=== PATIENT | male | born 1950 | race Caucasian/White ===

== ENCOUNTER 2023-08-17 11:56 | Observation (INO) ==
[2023-08-17] MEDS ORDERED: ceFAZolin 1 GM in Dextrose 1 GM/50 ML BAG ONE (13:42)
[2023-08-17 14:19] LABS: ABS Eosinophils 0.1 10^3/uL (0.0-0.5); ABS Lymphocytes 2.1 10^3/uL (1.0-4.8); ABS Monocytes 0.8 10^3/uL (0.0-1.1); ABS Neutrophils 6.1 10^3/uL (1.5-7.6); Hematocrit 41.7 % (38-53); Hemoglobin 14.7 g/dL (13.2-16.3); Lymphocyte % 23.2 %; Mean Corpuscular Hemoglobin 34.3 pg (27-33); Mean Corpuscular Hgb Conc 35.2 g/dL (31-36); Mean Corpuscular Volume 97.5 fL (80-97); Mean Platelet Volume 9.1 fL (7.5-11.2); Platelet Count 233 10^3/uL (150-450); Red Blood Count 4.28 10^6/uL (4.06-5.63); Red Cell Distribution Width 13.1 % (12-17); White Blood Count 9.2 10^3/uL (3.6-10.2)
[2023-08-17 14:39] LABS: INR 1.08 (0.83-1.13)
[2023-08-17] MEDS ORDERED: Lidocaine 1% w EPI 1:100,000 MDV 20 ML VIAL ONE (14:43)
[2023-08-17] MEDS ORDERED: Lidocaine 1% VIAL 10 MG/ML 30 ML VIAL ONE (14:43)
[2023-08-17] MEDS ORDERED: Midazolam 5 mg/5 ml VIAL 1 mg/ml 5 ml VIAL (5 mg) ONE (14:50)
[2023-08-17 15:17] LABS: Calcium 9.8 mg/dL (8.6-10.3); Creatinine, Serum 0.96 mg/dL (0.67-1.17); Potassium 4.2 mmol/L (3.5-5.0)
[2023-08-17] MEDS ORDERED: Iohexol 350 (CONTRAST) 100 ML PAK IV ONE (16:00)
[2023-08-17] MEDS ORDERED: Lidocaine 1% MPF 5 ML VIAL ONE (16:11)
[2023-08-17] MEDS: fentaNYL 100 mcg/2 ml 50 MCG/ML VIAL IV SLOW PU ONE (16:56)
[2023-08-17] MEDS: Lidocaine 2% JELLY 6 ML Topical TOPICAL ONE (16:56)
[2023-08-17] MEDS: fentaNYL 100 mcg/2 ml 50 MCG/ML VIAL ONE (16:56)
[2023-08-17] MEDS: Midazolam 2 mg/2 ml VIAL 1 mg/ml 2 ml VIAL (2 mg) ONE (16:56)
[2023-08-17] MEDS: Glucagon 1 mg VIAL KIT ONE (16:56)
[2023-08-17] MEDS: NS 0.9% 1000 ml BAG 1,000 ML IV ONE (16:56)
[2023-08-17] MEDS: Midazolam 10 mg/10 ml VIAL 1 mg/ml 10 ml VIAL (10 mg) IV SLOW PU ONE (16:56)
[2023-08-17] MEDS: Acetaminophen IV 1 GM/100ML 1,000 MG/100 ML BAG IV PRN (20:03)
[2023-08-17] MEDS: Morphine 2 MG/ML SYRINGE IV PRN (20:06)
[2023-08-17] MEDS: levETIRAcetam IV 750 MG in NS 0.9% 100 ml BAG 100 ML IVPB SCH (20:32)
[2023-08-17] MEDS: Heparin 5000 UNITS/ML 1 mL VIAL SUBCUT SCH (22:36)
[2023-08-18 07:08] LABS: Calcium 9.1 mg/dL (8.6-10.3); Creatinine, Serum 0.91 mg/dL (0.67-1.17); Potassium 4.3 mmol/L (3.5-5.0); eGFR CKD-EPI 90.7 (>60)
[2023-08-18 08:03] LABS: Hematocrit 39.9 % (38-53); Mean Corpuscular Hemoglobin 34.6 pg (27-33); Mean Corpuscular Hgb Conc 35.2 g/dL (31-36); Mean Corpuscular Volume 98.3 fL (80-97); Red Blood Count 4.06 10^6/uL (4.06-5.63); Red Cell Distribution Width 13.1 % (12-17); White Blood Count 8.2 10^3/uL (3.6-10.2)
[2023-08-18 09:06] LABS: ABS Eosinophils 0.1 10^3/uL (0.0-0.5); ABS Lymphocytes 2.3 10^3/uL (1.0-4.8); ABS Monocytes 0.8 10^3/uL (0.0-1.1); Eosinophil % 0.9 %; Large Platelets Present; Lymphocyte % 27.8 %; Mean Platelet Volume 8.8 fL (7.5-11.2); Platelet Count 209 10^3/uL (150-450)
[2023-08-18 10:11] VITALS: BP 143/69
== END 2023-08-18 13:20 | disposition home or self-care (01) ==
LOC: SSU 11:56 → CHICATH 11:56 → SUATTDRO 17:55
PROVIDERS: ADMIT Internal Medicine; ATTEND Student in an Organized Health Care Education/Training Program